=== PATIENT | male | born 1960 | race Caucasian/White ===

== ENCOUNTER 2017-07-02 13:11 | Observation (INO) | payer OTHER ==
[~2017-07-02] VITALS: Ht 175.3 cm; Wt 70.5 kg
[~2017-07-02 13:11] MED LIST: CYCLOBENZAPRINE10 MG PO; ENDOCET 5-3251 EACH PO; FOLIC ACID1 MG PO; MOBIC15 MG PO; NEURONTIN600 MG PO; PERCOCET 10/1 TABLET PO; TRILIPIX135 MG PO; VIAGRA100 MG PO; VITAMIN B-1100 MG PO; ZOVIRAX800 M1 PO
[2017-07-02 13:46] LABS: HEMATOCRIT 39.5 % (38.0-50.0); MCH 30.1 PG (29.0-34.0); MCHC 32.7 G/DL (30.0-36.0); MCV 92.1 FL (86-99); MEAN PLAT.VOLUME 10.8 uM^3 (9.0-12.4); PLATELET COUNT 236 K/uL (156-360); RBC DIS.WIDTH-CV 13.4 % (11.8-14.6); RBC DIS.WIDTH-SD 45.5 % (39-53); RED BLOOD COUNT 4.29 M/uL (4.00-5.50); WHITE BLOOD COUNT 7.3 K/uL (4.1-10.2)
[2017-07-02 13:51] LABS: CHLORIDE 102 mEq/L (99-109); POTASSIUM 3.5 mEq/L (3.7-5.4); SODIUM 140 mEq/L (136-147)
[2017-07-02 13:52] LABS: GLUCOSE 88 mg/dL (70-99)
[2017-07-02 13:54] LABS: ANION GAP 13 MEQ/L (2-14)
[2017-07-02 13:56] LABS: GFR ESTIMATE (CALCULATED) > 59 mL/min/
[2017-07-02 13:57] LABS: UREA NITROGEN (BUN) 11 mg/dL (9-23)
[2017-07-02] MEDS ORDERED: PERCOCET 10/1 TABLET PO (15:28)
[2017-07-02] MEDS ORDERED: XTAMPZA ER18 MG PO (19:06)
[2017-07-02] MEDS ORDERED: CIALIS20 MG PO (19:07)
[2017-07-02] MEDS ORDERED: MOVANTIK25 MG PO (19:09)
[2017-07-02] MEDS ORDERED: OXYCODONE HCL10 MG PO (19:11)
[2017-07-02 21:35] LABS: HDL CHOLESTEROL 44 MG/DL (Desirable>=40); LDL CHOLESTEROL 60 mg/dL (Desirable<100); NON-HDL CHOLESTEROL 98 mg/dL (Desirable<160); TOTAL CHOLESTEROL 142 mg/dL (Desirable<200); TRIGLYCERIDES 191 MG/DL (Normal: <150)
[2017-07-02 21:52] VITALS: BP 138/77
[2017-07-02 22:42] LABS: Estimated Average Glucose 111 mg/dL (70-123); HEMOGLOBIN A1c (GLYCOHEMOGLOB) 5.5 % HGB (Below 5.7)
[2017-07-03 04:08] VITALS: BP 120/70
[2017-07-03 07:35] VITALS: BP 139/83
[2017-07-03] MEDS ORDERED: ATORVASTATIN CA80 MG PO (15:39)
[2017-07-03] MEDS ORDERED: ASPIR-LOW81 MG PO (15:41)
[2017-07-03] MEDS ORDERED: FOLIC ACID1 MG PO (15:45)
[2017-07-03] MEDS ORDERED: THERAGRAN1 TABLET PO (15:46)
[2017-07-03] MEDS ORDERED: B-1100 MG PO (15:47)
[2017-07-03 16:03] VITALS: BP 141/76
[2017-07-03] MEDS ORDERED: AMLODIPINE BESYL5 MG PO (16:15)
[2017-07-04 10:50] LABS: HBSG INDEX 0.18; HPCA INDEX 0.09
[2017-07-04 10:51] LABS: HIV INDEX 0.14; HIV-1/2 AB/AG COMBO Nonreactive
== END 2017-07-03 18:52 | disposition home or self-care (01) ==
LOC: EME 13:11 → EDOF 20:17 → 5WEST 20:17 → EDOF 20:17 → ENRESERV 20:20 → 5WEST 21:17
PROVIDERS: Internal Medicine; Physician Assistant Medical
DX: I63.9 Cerebral infarction, unspecified (principal); M51.36 Other intervertebral disc degeneration, lumbar region; I10 Essential (primary) hypertension; E78.5 Hyperlipidemia, unspecified; F17.210 Nicotine dependence, cigarettes, uncomplicated; G62.9 Polyneuropathy, unspecified; I27.2 Other secondary pulmonary hypertension; G89.29 Other chronic pain; Z98.1 Arthrodesis status; F10.10 Alcohol abuse, uncomplicated; Z86.010 Personal history of colon polyps; Z80.0 Family history of malignant neoplasm of digestive organs; Z91.09 Other allergy status, other than to drugs and biological substances; Z79.891 Long term (current) use of opiate analgesic
CPT/HCPCS: 70140; 70450; 70544; 70549; 70551; 71020; 72148; 80048; 80061; 83036; 85027; 86703; 86803; 87340; 93005; 93306; 99281; 99285; G0378; G8978 GP CH; G8979 GP CH; G8980 GP CH; G8987 GO CH; G8988 GO CH; G8989 GO CH; J0696; J1650

== ENCOUNTER 2018-01-06 17:28 | Emergency (ER) | payer OTHER ==
[~2018-01-06] VITALS: Ht 175.3 cm; Wt 71.0 kg
[~2018-01-06 17:28] MED LIST changes: +AMLODIPINE BESYL5 MG PO; +ASPIR-LOW81 MG PO; +ATORVASTATIN CA80 MG PO; +B-1100 MG PO; +CIALIS20 MG PO; +MOVANTIK25 MG PO; +OXYCODONE HCL10 MG PO; +THERAGRAN1 TABLET PO; +XTAMPZA ER18 MG PO
[2018-01-06 19:56] LABS: HEMATOCRIT 31.7 % (38.0-50.0); HEMOGLOBIN 10.6 G/DL (12.5-16.6); MCH 29.9 PG (29.0-34.0); MCHC 33.4 G/DL (30.0-36.0); MCV 89.3 FL (86-99); PLATELET COUNT 411 K/uL (156-360); RBC DIS.WIDTH-CV 13.3 % (11.8-14.6); RBC DIS.WIDTH-SD 44.3 % (39-53); RED BLOOD COUNT 3.55 M/uL (4.00-5.50); WHITE BLOOD COUNT 6.2 K/uL (4.1-10.2)
[2018-01-06 20:10] LABS: ALBUMIN 3.7 g/dL (3.2-4.8); CHLORIDE 99 mEq/L (99-109); POTASSIUM 4.1 mEq/L (3.7-5.4); SODIUM 134 mEq/L (136-147)
[2018-01-06 20:12] LABS: GLUCOSE 99 mg/dL (70-99)
[2018-01-06 20:14] LABS: TOTAL BILIRUBIN 0.4 mg/dL (0.0-1.0)
[2018-01-06 20:16] LABS: ALKALINE PHOSPHATASE 135 IU/L (3-129); CREATININE 0.9 mg/dL (0.6-1.3); GFR ESTIMATE (CALCULATED) > 59 mL/min/ (58.99-99999)
[2018-01-06 20:17] LABS: UREA NITROGEN (BUN) 8 mg/dL (9-23)
[2018-01-06 20:18] LABS: AST (GOT) 44 IU/L (2-34); DIRECT BILIRUBIN 0.2 mg/dL (0.0-0.3)
[2018-01-06 20:19] LABS: ALT (GPT) 51 IU/L (3-49); LIPASE 29 U/L (1.0-51.0)
[2018-01-06 21:38] LABS: APPEARANCE CLEAR ((CLEAR)); BILIRUBIN NEGATIVE; BLOOD NEGATIVE; COLOR YELLOW ((YELLOW)); GLUCOSE (STRIP) NEGATIVE; KETONES NEGATIVE; LEUKOCYTES NEGATIVE; NITRITE NEGATIVE; PROTEIN (STRIP) NEGATIVE; SPECIFIC GRAVITY 1.009 (1.000-1.030); UCUL ADDED? NO; UROBILINOGEN 0.2 MG/DL (0.2-1.0)
[2018-01-07] MEDS ORDERED: MEDROL DOSEPAK4 MG PO (00:11)
[2018-01-07] MEDS ORDERED: KEFLEX500 MG PO (00:11)
[2018-01-07 00:50] VITALS: BP 123/75
== END 2018-01-07 00:51 | disposition home or self-care (01) ==
LOC: EME 17:28
PROVIDERS: Physician Assistant
DX: R63.4 Abnormal weight loss (principal); L30.9 Dermatitis, unspecified; K14.9 Disease of tongue, unspecified; R53.81 Other malaise; R51 Headache; Z68.23 Body mass index [BMI] 23.0-23.9, adult; I10 Essential (primary) hypertension; F17.200 Nicotine dependence, unspecified, uncomplicated
CPT/HCPCS: 71046; 80048; 80076; 81003; 83690; 85027; 99281; 99284